=== PATIENT | female | born 1995 | race Caucasian/White ===

== ENCOUNTER 2016-11-30 06:46 | Day surgery (SDC) | payer BC ==
[2016-11-30] MEDS ORDERED: MIDAZOLAM 2 MG/2 ML VIAL IVP ONE (06:52)
[2016-11-30] MEDS ORDERED: NS 1,000 ML IV ONE (06:52)
[2016-11-30] MEDS ORDERED: LIDOCAINE 1% 30 ML SDV ONE (07:06)
[2016-11-30] MEDS ORDERED: HEPARIN 10,000 UNIT/10 ML MDV ONE (07:07)
[2016-11-30] MEDS ORDERED: ISOPROTERENOL HCL 0.2 MG/ML 5ML AMP ONE (07:07)
[2016-11-30] MEDS ORDERED: BUPIVACAINE 0.5% 30 ML SDV ONE (07:07)
--- NOTE | 2016-11-30 07:16 | CPEKG ---
Heart Rate: 80 RR Interval: 750 P-R Interval: 132 QRSD Interval: 82 QT Interval: 360 QTC Interval: 416 P Sel[place]: 69 QRS [place]: 72 T Wave [place]: 42 EKG Severity - NORMAL ECG - EKG Impression: SINUS RHYTHM Electronically Signed By: Ricky Crystal 30-Nov-2016 11:48:54
[2016-11-30 07:37] LABS: % IMMATURE GRANULYOCYTES 0.2 % (0.0-1.1); ABSOLUTE IMMATURE GRANULOCYTES 0.01 10^3/uL (0.00-0.10); ADD DIFF? NO; ADD MORPH? NO; ADD SCAN? NO; ATYPICAL LYMPHOCYTE FLAG 0 (0-99); FRAGMENT RBC FLAG 0 (0-99); HEMATOCRIT 42.1 % (38.0-47.0); LEFT SHIFT FLG 0 (0-99); LIPEMIA HEMOLYSIS FLAG 80 (0-99); MEAN CELL HEMOGLOBIN 28.2 pg (27.9-34.1); MEAN CELL HEMOGLOBIN CONCENTR. 33.3 g/dL (32.4-36.7); MEAN CELL VOLUME 84.7 fL (81.5-99.8); MEAN PLATELET VOLUME 10.7 fL (8.7-11.7); PLATELET CLUMPS FLAG 10 (0-99); PLATELET COUNT 236 10^3/uL (150-400); RED BLOOD CELL COUNT 4.97 10^6/uL (4.18-5.33); RED CELL DISTRIBUTION WIDTH 12.2 % (11.5-15.2)
[2016-11-30 07:41] LABS: INR 1.01 (0.83-1.16); PROTIME(PATIENT) 13.2 SEC (12.0-15.0)
[2016-11-30 07:42] LABS: APTT 26.5 SEC (23.0-38.0)
[2016-11-30 08:06] LABS: ANION GAP 15 mEq/L (8-16); CALCIUM 9.9 mg/dL (8.5-10.4); CARBON DIOXIDE 22 mEq/l (22-31); CHLORIDE 109 mEq/L (97-110); CREATININE 0.8 mg/dL (0.6-1.0); GLOMERULAR FILTRATION RATE > 60; GLUCOSE 94 mg/dL (70-100); MAGNESIUM 1.9 mg/dL (1.6-2.3); POTASSIUM 3.9 mEq/L (3.5-5.2); SODIUM 146 mEq/L (134-144)
[2016-11-30] MEDS ORDERED: PROPOFOL/EMULSION 500 MG/50 ML BOTTLE IV ONE ×4 (08:48→09:48)
[2016-11-30] MEDS ORDERED: ROCURONIUM 100 MG/10 ML VIAL ONE ×2 (09:11→09:59)
[2016-11-30] MEDS ORDERED: PHENYLEPHRINE HCL 100 MCG/ML SYR ONE (09:59)
[2016-11-30] MEDS ORDERED: ATROPINE SULFATE 1 MG/10 ML SYR ONE (11:21)
--- NOTE | 2016-11-30 11:42 | EPPROC ---
Electrophysiology Procedure Note: DIAGNOSTIC ELECTROPHYSIOLOGIC STUDY Procedures performed: 1. Fluoroscopy 2. EP evaluation with RA/RV/LA pace/record, with arrhythmia induction 3. EP evaluation with RA/RV pace record, insert/reposition catheter, with arrhythmia induction 4. [id number] Programmed stimulation + pacing after IV drug INDICATION: Atrial tachycardia PROCEDURE: Catheters & Anesthesia: The patient arrived in the Electrophysiology Laboratory in the fasting state. The right clavicular region, right groin, & left groin area were prepped & draped in the usual sterile manner. Dr. Ruiz administered anesthesia. LMA followed by ETT. Appropriate non-invasive blood pressure, pulse oximetry & end-tidal CO2 monitoring was established. All catheters were placed percutaneously using the modified Seldinger technique , and advanced into position under fluoroscopic guidance. One #6 [place] hexapolar non-deflectable electrode catheter was inserted into the right atrial appendage via the left femoral vein (2mm spacing; except the proximal ring which was 25cm from the tip used for unipolar recordings). One #7 [place]ian deflectable octapolar electrode catheter was advanced to the His-bundle position via the left femoral vein (2mm spacing One #7 [place] deflectable catheter with 10 pairs of electrodes was placed via the right femoral vein into the coronary sinus and then placed along the Marci terminalis. Programmed stimulation was performed from the right atrium, right ventricle and coronary sinus (left atrium). Parahisian pacing demonstrated constant H-A interval with changing V-A intervals and stimulus-A intervals during capture and loss of capture of proximal RBB proving retrograde conduction over AV node. Heparin was administered to keep ACT > 200 seconds. No sustained reentrant tachycardia was induced during programmed stimulation at baseline or during graded doses of isoproterenol up to 4 mcg/min. 1 episode of self terminating atrial fibrillation was induced, this is considered an artifact of EP study and has not been seen clinically. Up to 2 beats of atrial tachycardia were seen, not enough for mapping or ablation. Slow AV dimitri pathway was present but not targeted for ablation since the clinical arrhythmia shows P-waves similar to sinus rhythm and is a long RP tachycardia. The catheters were removed. The patient was transferred to the cardiovascular holding area in stable condition. Vascular access sheaths were removed in the holding area. There were no apparent complications. Results: A. Spontaneous Intervals: SCL 730 ms AH 60 ms HV 40 ms B. Antegrade AV dimitri function (decremental pacing) FPERP 330 ms SPERP 320 ms WBB CL 310 ms C. Retrograde AV dimitri function (decremental pacing) FPERP 310 ms WBB CL 300 ms CONCLUSIONS 1. Normal sinus and AV node function. 2. No evidence of accessory AV pathway presence. 3. Dual AV dimitri physiology present, however not targeted for ablation since clinical tachycardia is long RP tachycardia with P-wave morphology similar to sinus rhythm. 4. No sustained arrhythmias induced. No ablation performed. 5. No apparent complications. Patient Problems: Problems Problem Status Onset Atrial tachycardia Acute
[2016-11-30] MEDS ORDERED: IBUPROFEN 200 MG TAB PO ONE ×2 (16:35→16:41)
== END 2016-11-30 17:30 | disposition home or self-care (01) ==
LOC: FCATH 06:46
PROVIDERS: ATTEND Internal Medicine Cardiovascular Disease
PROC: 4A023FZ Measurement of Cardiac Rhythm, Percutaneous Approach (ICD-10-PCS; principal; 2016-11-30)
PROC: 5A1213Z Performance of Cardiac Pacing, Intermittent (ICD-10-PCS; principal; 2016-11-30)
DX: I47.1 Supraventricular tachycardia (principal); Z87.440 Personal history of urinary (tract) infections
CPT/HCPCS: 93005; 93620; 93621; 93623; C1731; C1730; J0461; J1644; J2370; J2704